=== PATIENT | female | born 1960 | race Hispanic/Latino ===

== ENCOUNTER 2020-11-17 09:05 | Emergency (ER) | payer OTHER ==
[2020-11-17] MEDS ORDERED: KETOROLAC 30 MG/ML INJ ONE (11:18)
[2020-11-17] MEDS ORDERED: DIAZEPAM 5 MG TABLET ONE (11:18)
[2020-11-17] MEDS ORDERED: NA CHLORIDE 0.9% 1,000 ML ONE (11:19)
[2020-11-17 11:41] LABS: Absolute Lymphocytes (CBC) 1.9 K/uL (0.7-4.9); Basophils % 1.1 % (0-1.3); Hematocrit 41.5 % (36.0-45.0); Lymphocytes % 29.1 % (15.3-44.8); MPV 9.1 fL (7.6-11.3); RBC Red Blood Cell Count 4.67 M/uL (3.86-4.86)
[2020-11-17 11:50] LABS: ALT/SGPT 25 U/L (12-78); AST/SGOT 15 U/L (15-37); Albumin 3.8 g/dL (3.4-5.0); Alkaline Phosphatase 73 U/L (45-117); BUN Blood Urea Nitrogen 12 mg/dL (7-18); Bicarbonate 31 mmol/L (21-32); Bilirubin Direct < 0.1 mg/dL (0-0.2); Bilirubin Total 0.3 mg/dL (0.2-1.0); Glucose Level 88 mg/dL (74-106); Potassium 4.2 mmol/L (3.5-5.1); Protein, Total 7.3 g/dL (6.4-8.2); Sodium Level 139 mmol/L (136-145)
--- NOTE | 2020-11-17 11:51 | RAD REPORT ---
EXAM DESCRIPTION: CT - Head C Spine Tommy Reis - 11/17/2020 11:29 am CLINICAL HISTORY: Head and neck injury with chest and abdominal pain status post fall. Head and neck pain . TECHNIQUE: Computed axial tomography of the head and cervical spine was obtained Computed axial tomography of the chest, abdomen and pelvis was obtained. 100 cc Isovue-300 was given intravenously coronal and sagittal reconstruction was performed. All CT scans are performed using dose optimization technique as appropriate and may include automated exposure control or mA/KV adjustment according to patient size. COMPARISON: CT abdomen 2011 FINDINGS: An intracranial bleed is not seen. The ventricles are normal in caliber. An extra-axial fl uid collection is not noted. A cervical fracture is not seen. No dislocation is seen. A mediastinal hematoma is not noted. A pleural effusion is not present. A lung contusion is not seen. The liver, spleen, pancreas, adrenals, kidneys and bladder do not demonstrate a traumatic injury. 2.2 centimeter left adrenal nodule probably an adenoma. 4 centimeter cyst. Postsurgical changes involve left femur. Tiny umbilical hernia IMPRESSION: 1. No acute intracranial abnormality is seen 2. A cervical fracture is not visualized. If the patient continues have symptoms to suggest intracran ial/spinal cord pathology then MRI would be recommended. 3. No acute traumatic injury involving the chest, abdomen or pelvis is seen.
--- NOTE | 2020-11-17 11:52 | RAD REPORT ---
EXAM DESCRIPTION: RAD - Shoulder Left 2 View - 11/17/2020 11:01 am CLINICAL HISTORY: Left shoulder pain status post fall FINDINGS: No fracture or dislocation is seen.
--- NOTE | 2020-11-17 11:55 | RAD REPORT ---
EXAM DESCRIPTION: RAD - Hip Left 2 View - 11/17/2020 11:00 am CLINICAL HISTORY: Left hip pain status post injury FINDINGS: No acute fracture or dislocation is seen. An intramedullary nimesh and screw affix an old proximal left femoral fracture
--- NOTE | 2020-11-17 11:55 | RAD REPORT ---
EXAM DESCRIPTION: Angela Jimenes Left11/17/2020 11:00 am CLINICAL HISTORY: Left leg pain status post injury FINDINGS: No fracture is seen
--- NOTE | 2020-11-17 12:01 | ER ---
Nurse's Notes [facility] Name: Caitlyn Daily Age: 60 yrs Sex: Female : 1960 Arrival Date: 11/17/2020 Time: 09:15 Bed 5 Private MD: Diagnosis: Fall (on) (from) other stairs and steps;Pain in left shoulder;Pain in left leg-left lateral lower leg contusion Presentation: 11/17 10:12 Chief complaint: Patient states: Slipped down 5 steps at work yesterday. No LOC or head ll1 injury. L lateral leg pain, buttocks pain, neck pain, and L shoulder pain since. Coronavirus screen: Client denies travel out of the [place] in the last 14 days. At this time, the client does not indicate any symptoms associated with coronavirus-19. Ebola Screen: Patient denies travel to an Ebola-affected area in the 21 days before illness onset. Initial Sepsis Screen: Does the patient meet any 2 criteria? No. Patient's initial sepsis screen is negative. Does the patient have a suspected source of infection? No. Patient's initial sepsis screen is negative. Risk Assessment: Do you want to hurt yourself or someone else? Patient reports no desire to harm self or others. Onset of symptoms was November 16, 2020. 10:12 Method Of Arrival: Wheelchair ll1 10:12 Acuity: NIKHIL 3 ll1 Triage Assessment: 11:17 General: Appears uncomfortable, Behavior is calm, cooperative, appropriate for age. tr6 Historical: - Allergies: 10:12 No Known Allergies; ll1 - PMHx: 10:12 Kidney stones; ll1 - PSHx: 10:12 L leg SX with nimesh placed; ll1 - Immunization history:: Flu vaccine is not up to date. - Social history:: Smoking status: Patient denies any tobacco usage or history of. - Family history:: not pertinent. Screenin:16 Abuse screen: Denies threats or abuse. Denies injuries from another. Nutritional tr6 screening: No deficits noted. Tuberculosis screening: No symptoms or risk factors identified. Fall Risk Assessment: 11:16 Reassessment: pt currently in CT. tr6 11:38 Reassessment: pt returned to ED from CT. tr6 Vital Signs: 10:12 BP 122 / 52; Pulse 68; Resp 17; Temp 98.0; Pulse Ox 99% ; Weight 92.08 kg; Height 5 ft. ll1 4 in. (162.56 cm); Pain 8/10; 10:12 Body Mass Index 34.84 (92.08 kg, 162.56 cm) ll1 ED Course: 09:15 Patient arrived in ED. am2 10:04 Elizabeth Manzano, RN is Primary Nurse. tr6 10:11 Arm band placed on Patient placed in an exam room, on a stretcher. ll1 10:14 Triage completed. ll1 10:18 Arian Lemon MD is Attending Physician. lam 10:59 Shoulder Left (2 View) XRAY In Process Unspecified. EDMS 10:59 Tib Fib Left XRAY In Process Unspecified. EDMS 10:59 Hip Left 2 View XRAY In Process Unspecified. EDMS 11:16 Resting quietly. Awaiting lab results. tr6 11:16 Patient has correct armband on for positive identification. Fall risk band placed. tr6 Placed in gown. Bed in low position. Call light in reach. Side rails up X2. hospital monitor on. Pulse ox on. NIBP on. Door closed. Noise minimized. Visitors limited. Lights dimmed. Warm blanket given. Diet: Patient is NPO. 11:16 No provider procedures requiring assistance completed. tr6 11:20 Initial lab(s) drawn, by me, sent to lab. em1 11:20 Inserted saline lock: 20 gauge in right antecubital area, using aseptic technique. em1 Blood collected. 11:29 CT Traumagram (Head C Spine CAP W Con) In Process Unspecified. EDMS 12:00 Jt Carmichael MD is Referral Physician. lam 12:39 IV discontinued, intact, bleeding controlled, No redness/swelling at site. Pressure tr6 dressing applied. 12:40 Sling applied to left arm. em1 Administered Medications: 12:13 Drug: NS 0.9% 1000 ml Route: IV; Rate: 1 bolus; Site: right antecubital; tr6 12:39 Follow up: Response: No adverse reaction; IV Intake: 1000ml tr6 12:13 Drug: TORadol (ketorolac) 30 mg Route: IVP; Site: right antecubital; tr6 12:14 Drug: Valium (diazepam) 5 mg Route: PO; tr6 12:24 Drug: [place] (HYDROcodone-acetaminophen) 10 mg-325 mg 1 tabs Route: PO; tr6 Intake: 12:39 IV: 1000ml; Total: 1000ml. tr6 Outcome: 12:00 Discharge ordered by MD. fritz 13:14 Patient left the ED. iw Signatures: Dispatcher [employer] EDMS Arian Lemon MD MD cha Williams, Irene, RN RN Antwon Ramirez Denice Steiner Lynsay, RN RN ll1 Elizabeth Manzano RN RN tr6
--- NOTE | 2020-11-17 12:01 | EDPHYS ---
Physician Documentation [facility] Name: Caitlyn Daily Age: 60 yrs Sex: Female : 1960 Arrival Date: 11/17/2020 Time: 09:15 Bed 5 Private MD: ED Physician Arian Lemon HPI: 11/17 10:39 This 60 yrs old Female presents to ER via Wheelchair with complaints of Fall lam Injury, Leg Pain, Neck Pain, <24hrs Old. 10:39 Details of fall: The patient fell from a height, down approximately 3 stairs. Onset: lam The symptoms/episode began/occurred 1 day(s) ago. Associated injuries: The patient sustained injury to the head, neck injury, decreased range of motion, pain. Associated injuries: The patient sustained anterior aspect of left shoulder and posterior aspect of left shoulder, decreased range of motion, painful injury, lateral aspect of left calf, painful injury. Severity of symptoms: At their worst the symptoms were mild, in the emergency department the symptoms are unchanged. Historical: - Allergies: 10:12 No Known Allergies; ll1 - PMHx: 10:12 Kidney stones; ll1 - PSHx: 10:12 L leg SX with nimesh placed; ll1 - Immunization history:: Flu vaccine is not up to date. - Social history:: Smoking status: Patient denies any tobacco usage or history of. - Family history:: not pertinent. ROS: 10:39 Constitutional: Negative for fever, chills, and weight loss, Eyes: Negative for injury, lam pain, redness, and discharge, ENT: Negative for injury, pain, and discharge, Cardiovascular: Negative for chest pain, palpitations, and edema, Respiratory: Negative for shortness of breath, cough, wheezing, and pleuritic chest pain, Abdomen/GI: Negative for abdominal pain, nausea, vomiting, diarrhea, and constipation, : Negative for injury, bleeding, discharge, and swelling, Neuro: Negative for headache, weakness, numbness, tingling, and seizure, Psych: Negative for depression, anxiety, suicide ideation, homicidal ideation, and hallucinations, Allergy/Immunology: Negative for hives, rash, and allergies, Endocrine: Negative for neck swelling, polydipsia, polyuria, polyphagia, and marked weight changes, Hematologic/Lymphatic: Negative for swollen nodes, abnormal bleeding, and unusual bruising. 10:39 Back: Positive for decreased range of motion, pain at rest, of the lumbar area. 10:39 MS/extremity: Positive for contusion, decreased range of motion, pain, tenderness, of the anterior aspect of left shoulder and posterior aspect of left shoulder. Exam: 10:39 Constitutional: This is a well developed, well nourished patient who is awake, alert, lam and in no acute distress. Head/Face: Normocephalic, atraumatic. Eyes: Pupils equal round and reactive to light, extra-ocular motions intact. Lids and lashes normal. Conjunctiva and sclera are non-icteric and not injected. Cornea within normal limits. Periorbital areas with no swelling, redness, or edema. ENT: Nares patent. No nasal discharge, no septal abnormalities noted. Tympanic membranes are normal and external auditory canals are clear. Oropharynx with no redness, swelling, or masses, exudates, or evidence of obstruction, uvula midline. Mucous membranes moist. Neck: Trachea midline, no thyromegaly or masses palpated, and no cervical lymphadenopathy. Supple, full range of motion without nuchal rigidity, or vertebral point tenderness. No Meningismus. Chest/axilla: Normal chest wall appearance and motion. Nontender with no deformity. No lesions are appreciated. Cardiovascular: Regular rate and rhythm with a normal S1 and S2. No gallops, murmurs, or rubs. Normal PMI, no JVD. No pulse deficits. Respiratory: Lungs have equal breath sounds bilaterally, clear to auscultation and percussion. No rales, rhonchi or wheezes noted. No increased work of breathing, no retractions or nasal flaring. Abdomen/GI: Soft, non-tender, with normal bowel sounds. No distension or tympany. No guarding or rebound. No evidence of tenderness throughout. Female : Normal external genitalia. Skin: Warm, dry with normal turgor. Normal color with no rashes, no lesions, and no evidence of cellulitis. Neuro: Awake and alert, GCS 15, oriented to person, place, time, and situation. Cranial nerves II-XII grossly intact. Motor strength 5/5 in all extremities. Sensory grossly intact. Cerebellar exam normal. Normal gait. Psych: Awake, alert, with orientation to person, place and time. Behavior, mood, and affect are within normal limits. 10:39 Back: ROM is painful, normal spinal alignment noted, CVA tenderness, is absent, vertebral tenderness, is appreciated at L1, L2, L3, L4 and L5. Vital Signs: 10:12 BP 122 / 52; Pulse 68; Resp 17; Temp 98.0; Pulse Ox 99% ; Weight 92.08 kg; Height 5 ft. ll1 4 in. (162.56 cm); Pain 8/10; 10:12 Body Mass Index 34.84 (92.08 kg, 162.56 cm) ll1 MDM: 10:18 Patient medically screened. [facility] 10:43 Differential diagnosis: closed head injury, contusion, fracture, multiple trauma, lam sprain, strain. Data reviewed: vital signs, nurses notes, lab test result(s), radiologic studies, CT scan, plain films. Data interpreted: code enforcement inspector: rate is 68 beats/min, rhythm is regular, Pulse oximetry: on room air is 99 %. Test interpretation: by ED physician or midlevel provider: plain radiologic studies. Counseling: I had a detailed discussion with the patient and/or guardian regarding: the historical points, exam findings, and any diagnostic results supporting the discharge/admit diagnosis, lab results, radiology results, the need for outpatient follow up, for definitive care, a family practitioner, a orthopedic surgeon. 11/17 10:37 Order name: Basic Metabolic Panel [facility] 11/17 10:37 Order name: CBC with Diff; Complete Time: 11:59 [facility] 11/17 10:37 Order name: CT Traumagram (Head C Spine CAP W Con); Complete Time: 11:59 [facility] 11/17 10:37 Order name: Type And Screen [facility] 11/17 10:37 Order name: LFT's; Complete Time: 11:59 [facility] 11/17 10:37 Order name: Basic Metabolic Panel; Complete Time: 11:59 [facility] 11/17 10:37 Order name: Labs collected and sent; Complete Time: 11:38 [facility] 11/17 10:37 Order name: Shoulder Left (2 View) XRAY; Complete Time: 11:59 [facility] 11/17 10:37 Order name: Tib Fib Left XRAY; Complete Time: 11:59 [facility] 11/17 10:37 Order name: Hip Left 2 View XRAY; Complete Time: 11:59 [facility] 11/17 12:00 Order name: Sling; Complete Time: 12:19 [facility] 11/17 12:00 Order name: Ice pack; Complete Time: 12:19 [facility] Administered Medications: 12:13 Drug: NS 0.9% 1000 ml Route: IV; Rate: 1 bolus; Site: right antecubital; tr6 12:39 Follow up: Response: No adverse reaction; IV Intake: 1000ml tr6 12:13 Drug: TORadol (ketorolac) 30 mg Route: IVP; Site: right antecubital; tr6 12:14 Drug: Valium (diazepam) 5 mg Route: PO; tr6 12:24 Drug: [place] (HYDROcodone-acetaminophen) 10 mg-325 mg 1 tabs Route: PO; tr6 Disposition: 11/17/20 12:00 Discharged to Home. Impression: Fall (on) (from) other stairs and steps, Pain in left shoulder, Pain in left leg - left lateral lower leg contusion. - Condition is Stable. - Discharge Instructions: Joint Pain, Musculoskeletal Pain, Shoulder Pain, Cryotherapy, [id number]-[id number], Shoulder Pain, [id number], Cryotherapy. - Prescriptions for Ibuprofen 600 mg Oral Tablet - take 1 tablet by ORAL route every 6 hours As needed take with food; 20 tablet. Tylenol- Codeine #3 300-30 mg Oral Tablet - take 2 tablets by ORAL route every 4-6 hours As needed; 20 tablet. Cyclobenzaprine 5 mg Oral Tablet - take 1 tablet by ORAL route 3 times per day As needed; 15 tablet. - Medication Reconciliation Form, Thank You Letter, Antibiotic Education, Prescription Opioid Use form. - Follow up: Private Physician; When: 2 - 3 days; Reason: Recheck today's complaints, Continuance of care, Re-evaluation by your physician. Follow up: Jt Carmichael MD; When: 2 - 3 days; Reason: Recheck today's complaints, Continuance of care, Re-evaluation by your physician. - Problem is new. - Symptoms have improved. Signatures: Dispatcher [employer] Arian Carreon MD MD cha Williams, Irene, RN RN iw Marcello Lovelace RN RN ll1 Elizabeth Manzano RN RN tr6 Corrections: (The following items were deleted from the chart) 12:00 12:11/17/2020 12:00 Discharged to Home. Impression: Fall (on) (from) other stairs lam and steps; Pain in left shoulder; Pain in left leg - left lateral lower leg contusion. Condition is Stable. Discharge Instructions: Joint Pain, Musculoskeletal Pain, Shoulder Pain, Cryotherapy, Prbk-[id number], Shoulder Pain, Regt-zi-Bglk, Cryotherapy. Prescriptions for Ibuprofen 600 mg Oral Tablet - take 1 tablet by ORAL route every 6 hours As needed take with food; 20 tablet, Tylenol-Codeine #3 300-30 mg Oral Tablet - take 2 tablets by ORAL route every 4-6 hours As needed; 20 tablet, Cyclobenzaprine 5 mg Oral Tablet - take 1 tablet by ORAL route 3 times per day As needed; 15 tablet. and Forms are Medication Reconciliation Form, Thank You Letter, Antibiotic Education, Prescription Opioid Use. Follow up: Private Physician; When: 2 - 3 days; Reason: Recheck today's complaints, Continuance of care, Re-evaluation by your physician. Problem is new. Symptoms have improved. lam 13:14 12:00 11/17/2020 12:00 Discharged to Home. Impression: Fall (on) (from) other stairs iw and steps; Pain in left shoulder; Pain in left leg - left lateral lower leg contusion. Condition is Stable. Discharge Instructions: Joint Pain, Musculoskeletal Pain, Shoulder Pain, Cryotherapy, Qjxw-ar-[id number], Shoulder Pain, Juvg-gn-Azhv, Cryotherapy. Prescriptions for Ibuprofen 600 mg Oral Tablet - take 1 tablet by ORAL route every 6 hours As needed take with food; 20 tablet, Tylenol-Codeine #3 300-30 mg Oral Tablet - take 2 tablets by ORAL route every 4-6 hours As needed; 20 tablet, Cyclobenzaprine 5 mg Oral Tablet - take 1 tablet by ORAL route 3 times per day As needed; 15 tablet. and Forms are Medication Reconciliation Form, Thank You Letter, Antibiotic Education, Prescription Opioid Use. Follow up: Private Physician; When: 2 - 3 days; Reason: Recheck today's complaints, Continuance of care, Re-evaluation by your physician. Follow up: Jt Carmichael; When: 2 - 3 days; Reason: Recheck today's complaints, Continuance of care, Re-evaluation by your physician. Problem is new. Symptoms have improved. lam
[2020-11-17] MEDS ORDERED: HYDROCODONE/APAP 10/325 TAB ONE (12:42)
[2020-11-17 13:20] VITALS: BP 122/52; TEMP 98; O2SAT 99
== END 2020-11-17 13:14 | disposition home or self-care (01) ==
LOC: ER 09:05
DX: M25.512 Pain in left shoulder (principal); S80.12XA Contusion of left lower leg, initial encounter; W10.9XXA Fall (on) (from) unspecified stairs and steps, initial encounter
CPT/HCPCS: 85025; 80048; 36415; 86900; 86850; 86901; 80076; 70450; 72125; 71260; 74177; 73502; 73030; 73590; Q9967; J7030; 96374; 99284

== ENCOUNTER 2021-01-13 21:53 | Emergency (ER) | payer OTHER ==
--- NOTE | 2021-01-14 00:24 | EDPHYS ---
Physician Documentation [facility] Name: Caitlyn Daily Age: 60 yrs Sex: Female : 1960 Arrival Date: 01/13/2021 Time: 21:58 Bed Waiting Private MD: ED Physician Juan Mendoza HPI: 01/14 00:18 This 60 yrs old Female presents to ER via Wheelchair with complaints of Fall tw4 Injury, Knee Injury. 00:18 Details of fall: The patient fell from an upright position, while standing. Onset: The tw4 symptoms/episode began/occurred today. Associated injuries: The patient sustained no obvious injury. Severity of symptoms: At their worst the symptoms were moderate, in the emergency department the symptoms are unchanged. The patient has not experienced similar symptoms in the past. Historical: - Allergies: 01/13 22:30 No Known Allergies; kg - Home Meds: 22:30 None [Active]; kg - PMHx: 22:30 Kidney stones; kg - PSHx: 22:30 Right Femur repair; kg - Immunization history:: Adult Immunizations up to date, Client reports receiving the 2nd dose of the Covid vaccine, Date received: July 2020 [employer] Client reports receiving the 1st dose of the Covid vaccine, July 2020 [employer]. - Social history:: Smoking status: Patient reports the use of cigarette tobacco products, smokes one-half pack cigarettes per day. ROS: 01/14 00:18 Constitutional: Negative for fever, chills, and weight loss. tw4 MS/extremity: Positive for injury or acute deformity, decreased range of motion, deformity, Negative for ecchymosis, erythema, pain, puncture. Exam: 00:18 Constitutional: This is a well developed, well nourished patient who is awake, alert, tw4 and in no acute distress. Head/Face: Normocephalic, atraumatic. Chest/axilla: Normal chest wall appearance and motion. Nontender with no deformity. No lesions are appreciated. Cardiovascular: Regular rate and rhythm with a normal S1 and S2. No gallops, murmurs, or rubs. Normal PMI, no JVD. No pulse deficits. Respiratory: Lungs have equal breath sounds bilaterally, clear to auscultation and percussion. No rales, rhonchi or wheezes noted. No increased work of breathing, no retractions or nasal flaring. Abdomen/GI: Soft, non-tender, with normal bowel sounds. No distension or tympany. No guarding or rebound. No evidence of tenderness throughout. Skin: Warm, dry with normal turgor. Normal color with no rashes, no lesions, and no evidence of cellulitis. Neuro: Awake and alert, GCS 15, oriented to person, place, time, and situation. Cranial nerves II-XII grossly intact. Motor strength 5/5 in all extremities. Sensory grossly intact. Cerebellar exam normal. Normal gait. 00:18 Musculoskeletal/extremity: Extremities: noted in the left knee: decreased ROM, deformity, pain. Vital Signs: 01/13 22:28 BP 126 / 67; Pulse 78; Resp 20; Temp 98.4(TE); Pulse Ox 98% on R/A; Weight 86.18 kg kg (R); Height 5 ft. 5 in. (165.10 cm); Pain 10/10; 22:28 Body Mass Index 31.62 (86.18 kg, 165.10 cm) kg MDM: 01/14 00:18 Data reviewed: vital signs, nurses notes. Data interpreted: Pulse oximetry: tw4 Interpretation: normal. Counseling: I had a detailed discussion with the patient and/or guardian regarding: the historical points, exam findings, and any diagnostic results supporting the discharge/admit diagnosis, radiology results. Special discussion: I discussed with the patient/guardian in detail that at this point there is no indication for admission to the hospital. It is understood, however, that if the symptoms persist or worsen the patient needs to return immediately for re-evaluation. 00:23 Patient medically screened. tw4 01/13 22:34 Order name: XRAY Knee LEFT 3 view kg 01/13 22:50 Order name: Hand Left 3 View XRAY tw4 01/14 00:12 Order name: Knee Immobilizer; Complete Time: :34 tw4 Administered Medications: 00:34 Drug: HYDROcodone-acetaminophen 5 mg-325 mg 1 tabs Route: PO; kg 00:36 Follow up: Response: No adverse reaction kg Disposition Summary: 01/14/21 00:23 Discharge Ordered Location: Home tw4 Condition: Stable tw4 Diagnosis - Displaced comminuted fracture of left patella, initial encounter for closed fracturetw4 Followup: tw4 - With: Private Physician - When: Upon discharge from the Emergency Department - Reason: Recheck today's complaints, Continuance of care, Re-evaluation by your physician Followup: tw4 - With: Jt Carmichael MD - When: Upon discharge from the Emergency Department - Reason: Recheck today's complaints, Continuance of care, Re-evaluation by your physician Followup: tw4 - With: Galileo Lugo MD - When: Upon discharge from the Emergency Department - Reason: Recheck today's complaints, Continuance of care, Re-evaluation by your physician Followup: tw4 - With: Everardo Guillermo MD - When: Upon discharge from the Emergency Department - Reason: Recheck today's complaints, Continuance of care, Re-evaluation by your physician Followup: tw4 - With: Trino Ruggiero MD - When: Upon discharge from the Emergency Department - Reason: Recheck today's complaints, Continuance of care, Re-evaluation by your physician Discharge Instructions: - Discharge Summary Sheet tw4 - Patellar Fracture, Adult tw Forms: - Medication Reconciliation Form tw4 - Thank You Letter tw4 - Antibiotic Education tw4 - Prescription Opioid Use tw4 Prescriptions: - Ibuprofen 800 mg Oral Tablet - take 1 tablet by ORAL route every 12 hours As needed take with food; 20 tablet; tw4 Refills: 0, Product Selection Permitted - Tramadol 50 mg Oral Tablet - take 1 tablet by ORAL route every 8 hours as needed; 12 tablet; Refills: 0, tw4 Product Selection Permitted Signatures: Dispatcher [employer] Juan Mcbride MD MD tw4 April Cadena, RN RN kg
--- NOTE | 2021-01-14 00:24 | ER ---
Nurse's Notes [facility] Name: Caitlyn Daily Age: 60 yrs Sex: Female : 1960 Arrival Date: 01/13/2021 Time: 21:58 Bed Waiting Private MD: Diagnosis: Displaced comminuted fracture of left patella, initial encounter for closed fracture Presentation: 01/13 22:28 Chief complaint: Patient states: Left knee pain and hand pain. Pt fell from standing kg position and hit left knee onto stretched out hands on concrete. Coronavirus screen: Client denies travel out of the [place] in the last 14 days. At this time, unable to obtain information related to travel outside the [place] Ebola Screen: Patient negative for fever greater than or equal to 101.5 degrees Fahrenheit, and additional compatible Ebola Virus Disease symptoms Patient denies exposure to infectious person. Patient denies travel to an Ebola-affected area in the 21 days before illness onset. Initial Sepsis Screen: Does the patient meet any 2 criteria? No. Patient's initial sepsis screen is negative. Does the patient have a suspected source of infection? No. Patient's initial sepsis screen is negative. Risk Assessment: Do you want to hurt yourself or someone else? Patient reports no desire to harm self or others. Onset of symptoms was January 13, 2021 at 20:00. 22:28 Method Of Arrival: Wheelchair kg 22:28 Acuity: NIKHIL 4 kg Triage Assessment: 22:30 General: Appears in no apparent distress. Behavior is calm, cooperative, appropriate kg for age, quiet. Pain: Complains of pain in Left knee. Historical: - Allergies: 22:30 No Known Allergies; kg - Home Meds: 22:30 None [Active]; kg - PMHx: 22:30 Kidney stones; kg - PSHx: 22:30 Right Femur repair; kg - Immunization history:: Adult Immunizations up to date, Client reports receiving the 2nd dose of the Covid vaccine, Date received: July 2020 [employer] Client reports receiving the 1st dose of the Covid vaccine, July 2020 [employer]. - Social history:: Smoking status: Patient reports the use of cigarette tobacco products, smokes one-half pack cigarettes per day. Screenin:33 Abuse screen: Denies threats or abuse. Denies injuries from another. Nutritional kg screening: No deficits noted. Tuberculosis screening: No symptoms or risk factors identified. Fall Risk Fall in past 12 months (25 points). No secondary diagnosis (0 pts). No IV (0 pts). Ambulatory Aid- None/Bed Rest/Nurse Assist (0 pts). Gait- Impaired (20 pts.). Mental Status- Oriented to own ability (0 pts). Total Munoz Fall Scale indicates Low Risk Score (25-44 pts). Fall prevention measures have been instituted. Side Rails Up X 2 Placed close to Nursing Station Frequent Obs/Assesments occuring Family Present and informed to notify staff if they need to leave bedside As available Patient and Family Educated on Fall Prevention Program and strategies. Vital Signs: 22:28 BP 126 / 67; Pulse 78; Resp 20; Temp 98.4(TE); Pulse Ox 98% on R/A; Weight 86.18 kg kg (R); Height 5 ft. 5 in. (165.10 cm); Pain 10/10; 22:28 Body Mass Index 31.62 (86.18 kg, 165.10 cm) kg ED Course: 21:58 Patient arrived in ED. cf2 22:30 Triage completed. kg 22:30 Arm band placed on right wrist. kg 22:33 Patient has correct armband on for positive identification. kg 22:50 Juan Mendoza MD is Attending Physician. tw4 23:01 XRAY Knee LEFT 3 view In Process Unspecified. EDMS 23:01 Hand Left 3 View XRAY In Process Unspecified. EDMS 01/14 00:22 Jt Carmichael MD is Referral Physician. tw4 00:22 Galileo Lugo MD is Referral Physician. tw4 00:22 Everardo Guillermo MD is Referral Physician. tw4 00:23 Trino Ruggiero MD is Referral Physician. tw4 00:35 No provider procedures requiring assistance completed. Patient did not have IV access kg during this emergency room visit. Administered Medications: 00:34 Drug: HYDROcodone-acetaminophen 5 mg-325 mg 1 tabs Route: PO; kg 00:36 Follow up: Response: No adverse reaction kg Outcome: 00:23 Discharge ordered by . tw4 00:35 Discharged to home via wheelchair, with crutches, with family. kg 00:35 Condition: good 00:35 Discharge instructions given to patient, Instructed on discharge instructions, follow up and referral plans. Demonstrated understanding of instructions, follow-up care, medications, Prescriptions given X 2. 00:49 Patient left the ED. em Signatures: Dispatcher [employer] Jerald Roper, RN RN Juan Iyer MD MD tw4 Jay Samayoa cf2 April Cadena RN RN kg
[2021-01-14] MEDS ORDERED: HYDROCODONE/APAP 5/325 MG TAB ONE (00:52)
[2021-01-14 01:11] VITALS: BP 126/67; TEMP 98.4; O2SAT 98
--- NOTE | 2021-01-14 08:49 | RAD REPORT ---
EXAM DESCRIPTION: RAD - Knee Left 3 View - 01/13/2021 11:01 pm CLINICAL HISTORY: Left knee pain status post injury FINDINGS: Mildly displaced fracture involves the mid patella. Hemarthrosis is present. Intramedullary nimesh and screws affix an old femoral fracture. No dislocation
--- NOTE | 2021-01-14 08:55 | RAD REPORT ---
EXAM DESCRIPTION: RAD -Hand Left 3 View - 01/13/2021 11:01 pm CLINICAL HISTORY: Left hand pain status post injury FINDINGS: No fracture or dislocation is seen. 5 millimeter lucency is present within the first metatarsal head with a sclerotic border. This probab ly is benign. Follow up x-ray in 3 months recommended to assess stability
== END 2021-01-14 00:49 | disposition home or self-care (01) ==
LOC: ER 21:53
DX: S82.042A Displaced comminuted fracture of left patella, initial encounter for closed fracture (principal); W18.30XA Fall on same level, unspecified, initial encounter; Y93.89 Activity, other specified; F17.210 Nicotine dependence, cigarettes, uncomplicated
CPT/HCPCS: 99283